=== PATIENT | male | born 1970 | race American Indian/Alaskan Native ===

== ENCOUNTER 2018-08-04 12:43 | Emergency (ER) | payer BC ==
[2018-08-04 12:51] VITALS: TEMP 98.4
[2018-08-04] MEDS ORDERED: Sodium Chloride 0.9% 1,000 ML IV STA (13:16)
--- NOTE | 2018-08-04 13:20 | ED PDOC ---
HPI: Hypertension/Hypotension Time Seen by Provider: 08/04/18 13:15 Chief Complaint (Nursing): High Blood Pressure Chief Complaint (Provider): headache/elevated bp History Per: Patient (47 y/o male h/o HTN here with elevated BP and headache since awakening today. Notes pain frontal region and occiptal of head. Took lisinopril today unsure of dose. Denies any photophobia/neck stiffness/vomiting. Has h/o headaches in past.) Past Medical History Reviewed: Historical Data, Nursing Documentation, Vital Signs Vital Signs: Last Vital Signs Temp 98.4 F 08/04/18 12:48 Pulse 80 08/04/18 12:48 Resp 16 08/04/18 12:48 BP 148/120 H 08/04/18 13:09 Pulse Ox 99 08/04/18 12:48 - Medical History PMH: HTN - Family History Family History: States: No Known Family Hx - Allergies Allergies/Adverse Reactions: Allergies Allergy/AdvReac Type Severity Reaction Status Date / Time No Known Allergies Allergy Verified 08/04/18 12:47 Review of Systems ROS Statement: Except As Marked, All Systems Reviewed And Found Negative Neurological: Positive for: Headache Physical Exam - Reviewed Nursing Documentation Reviewed: Yes Vital Signs Reviewed: Yes - Physical Exam Appears: Positive for: Well, Non-toxic, No Acute Distress Head Exam: Positive for: ATRAUMATIC, NORMAL INSPECTION, NORMOCEPHALIC Skin: Positive for: Normal Color, Warm, DRY Eye Exam: Positive for: EOMI, Normal appearance, PERRL ENT: Positive for: Normal ENT Inspection Neck: Positive for: Normal, Painless ROM Cardiovascular/Chest: Positive for: Regular Rate, Rhythm Respiratory: Positive for: CNT, Normal Breath Sounds Gastrointestinal/Abdominal: Positive for: Normal Exam, Soft Back: Positive for: Normal Inspection Extremity: Positive for: Normal ROM Neurologic/Psych: Positive for: Alert, Oriented - Laboratory Results Result Diagrams: 08/04/18 13:56 08/04/18 13:56 - ECG O2 Sat by Pulse Oximetry: 99 - Progress ED Course And Treament: Reglan 10 mg iv x 1 dose acetaminophen 975mg x 1 dose NS 1 liter 500 ml per hour Disposition - Clinical Impression Clinical Impression: Headache, Hypertension - Patient ED Disposition Is Patient to be Admitted: No - Disposition Referrals: [facility] [Outside] Disposition: Routine/Home Disposition Time: 17:08 Condition: FAIR Instructions: Headache, Adult, Controlling Your Blood Pressure Through Lifestyle, High Blood Pressure (DC)
--- NOTE | 2018-08-04 13:50 | CT ---
Date of service: 08/04/2018 PROCEDURE: CT HEAD WITHOUT CONTRAST. HISTORY: headache COMPARISON: None available. TECHNIQUE: Axial computed tomography images were obtained through the head/brain without intravenous contrast. Radiation dose: Total exam DLP = 823.79 mGy-cm. This CT exam was performed using one or more of the following dose reduction techniques: Automated exposure control, adjustment of the mA and/or kV according to patient size, and/or use of iterative reconstruction technique. FINDINGS: HEMORRHAGE: No intracranial hemorrhage. BRAIN: No mass effect or edema. No atrophy or chronic microvascular ischemic changes. VENTRICLES: Unremarkable. No hydrocephalus. CALVARIUM: Unremarkable. PARANASAL SINUSES: [id number] mucosal thickening noted in the left sphenoid sinus MASTOID AIR CELLS: Unremarkable as visualized. No inflammatory changes. OTHER FINDINGS: None. IMPRESSION: No evidence of acute intracranial hemorrhage intracranial collection mass effect or midline shift. Lvaz-do-lvndtfcp left sphenoid sinus mucosal thickening.
[2018-08-04 14:14] LABS: ALB/GLOB RATIO 1.3 (1.0-2.1); ALBUMIN 4.2 g/dL (3.5-5.0); ALT/SGPT 36 U/L (21-72); AST/SGOT 30 U/L (17-59); BLOOD UREA NITROGEN 12 mg/dl (9-20); CALCIUM 9.8 mg/dL (8.4-10.2); GFR NON-AFRICAN AMERICAN > 60
[2018-08-04 14:15] LABS: BASO % 0.3 % (0.0-2.0); EOS # 0.1 K/uL (0.0-0.7); EOS % 1.1 % (0.0-4.0); HEMOGLOBIN 15.6 g/dL (12.0-18.0); LYMPH # 1.3 K/uL (1.0-4.3); LYMPH % 22.5 % (20.0-40.0); MEAN CELL VOLUME 92.8 fl (80.0-94.0); MEAN CORPUSCULAR HEMOGLOBIN 31.1 pg (27.0-31.0); MEAN CORPUSCULAR HGB CONC 33.5 g/dL (33.0-37.0); MEAN PLATELET VOLUME 8.4 fl (7.2-11.7); MONO # 0.6 K/uL (0.0-0.8); MONO % 10.2 % (0.0-10.0); NEUT # 3.7 K/uL (1.8-7.0); NEUT % 65.9 % (50.0-75.0); NRBC % 0.1 % (0.0-0.0); RBC 5.02 Mil/uL (4.40-5.90); RED CELL DISTRIBUTION WIDTH 13.5 % (11.5-14.5); WHITE BLOOD COUNT 5.6 K/uL (4.8-10.8)
[2018-08-04 14:26] LABS: SQUAMOUS EPITHIAL < 1 /hpf (0-5); URINE BACTERIA RARE (<OCC); URINE BILIRUBIN NEGATIVE (NEGATIVE); URINE BLOOD NEGATIVE (NEGATIVE); URINE CLARITY CLEAR (Clear); URINE COLOR STRAW (YELLOW); URINE GLUCOSE (UA) NEG (Normal); URINE LEUKOCYTE ESTERASE NEG Leu/uL (Negative); URINE PROTEIN NEGATIVE (NEGATIVE); URINE UROBILINOGEN 0.2-1.0 mg/dL (0.2-1.0)
--- NOTE | 2018-08-04 14:31 | CARD ---
APPROVED REPORT Date of service: 08/04/2018 EKG Measurement Heart [id number] <Conclusion> Normal sinus rhythm Normal ECG
[2018-08-04 17:31] VITALS: BP 133/69; PULSE 93; RESP 20; O2SAT 96
== END 2018-08-04 17:31 | disposition home or self-care (01) ==
LOC: H.ER 12:43
DX: I10 Essential (primary) hypertension (principal)
CPT/HCPCS: 70450; 80053; 81003; 85025; 93005; 96361; 96374; 96375; 99285; J1885; J2765; J7030